=== PATIENT | female | born 1965 | race Caucasian/White ===

== ENCOUNTER 2018-09-27 10:03 | Emergency (ER) | payer MEDICAID ==
[~2018-09-27] VITALS: Ht 154.9 cm; Wt 87.1 kg
[~2018-09-27 10:03] MED LIST: FLUO20TA25 PO; OMEP-110 PO
[2018-09-27 10:09] VITALS: BP 153/101
--- NOTE | 2018-09-27 10:37 | NUR ---
PT C/O LEFT EYE PAIN.
--- NOTE | 2018-09-27 10:37 | NUR ---
LATE ENTRY FOR 1020 PT TO ROOM AT THIS TIME
--- NOTE | 2018-09-27 11:12 | NUR ---
CARE FOR DC ONLY PROVIDED. PT SITTING ON CHAIR, LEFT EYE RED. NO ACUTE DISTRESS NOTED. NO IV TO DC. REVIEWED DC INSTRUCTIONS WITH PT, UNDERSTANDING VERBALIZED. PT LEFT AMB, GAIT STEADY.
== END 2018-09-27 11:14 | disposition home or self-care (01) ==
LOC: ED 11:11
DX: H10.022 Other mucopurulent conjunctivitis, left eye (principal); Z90.710 Acquired absence of both cervix and uterus; J45.909 Unspecified asthma, uncomplicated
CPT/HCPCS: 99283

== ENCOUNTER 2018-11-01 14:46 | Emergency (ER) | payer MEDICAID ==
[~2018-11-01] VITALS: Ht 152.4 cm; Wt 85.9 kg
--- NOTE | 2018-11-01 15:00 | NUR ---
Patient Bilingual french/palauan. [place]an is excellent-no need for VRI per patient. [employer] T[employer] agreeable
[2018-11-01] MEDS ORDERED: ONDANSETRON 2MG/ML, 2ML ONE (15:24)
[2018-11-01] MEDS ORDERED: SODIUM CHLORIDE FLUSH 10ML SYR IVF ONE (15:30)
[2018-11-01] MEDS ORDERED: ONDANSETRON 2MG/ML, 2ML IVPush ONE (15:30)
[2018-11-01] MEDS ORDERED: ALBUTEROL/IPRATROPIUM 2.5MG/0.5MG, 3 ML NPPB SCH (15:30)
--- NOTE | 2018-11-01 15:30 | NUR ---
RT AT BEDSIDE PERFORMING NEB. SHELTER THROUGH ADMINISTRATION PATIENT BECAME NAUSEATED/DIZZY/TACHYCARDIC (130) AND VOMITED X1. RT STOPPED NEB. PROVIDER MADE AWARE. TO MEDICATE W/ ZOFRAN AND BROADEN WORKUP
--- NOTE | 2018-11-01 15:51 | NUR ---
ULTRASOUND PIV PLACED-MEDICATED PER EMAR WITH ZOFRAN THEN PO PREDNISON 10 MINUTES LATER WHEN NAUSEA IMPROVED
[2018-11-01 16:10] LABS: ALBUMIN 3.9 g/dL (3.4-5.0); ANION GAP 8 mmol/L (5-15); CALCIUM 9.5 mg/dL (8.5-10.1); CHLORIDE 113 mmol/L (98-107); CREATININE 0.79 mg/dL (0.55-1.02)
[2018-11-01 16:13] LABS: BASOPHILS # (AUTO) 0.05 x10^3/uL (0-0.1); BASOPHILS % (AUTO) 1 % (0-1); EOSINOPHILS # (AUTO) 0.17 x10^3/uL (0-0.4); EOSINOPHILS % (AUTO) 2 % (1-7); LYMPHOCYTES # (AUTO) 3.97 x10^3/uL (1-3.4); LYMPHOCYTES % (AUTO) 48 % (22-44); MD NO; MEAN CORPUSCULAR HEMOGLOBIN 31.1 pg (27.0-34.8); MEAN CORPUSCULAR VOLUME 94.2 fL (80-100); MEAN PLATELET VOLUME 9.5 fL (7.4-10.4); MONOCYTES # (AUTO) 0.54 x10^3/uL (0.2-0.8); MONOCYTES % (AUTO) 7 % (2-9); NEUTROPHILS # (AUTO) 3.48 x10^3/uL (1.8-6.8); NEUTROPHILS % (AUTO) 42 % (42-75); PLATELET COUNT 208 x10^3/uL (130-400); RED BLOOD COUNT 4.28 x10^6/uL (3.82-5.3); RED CELL DISTRIBUTION WIDTH 13.2 % (9.6-15.2); TROPONIN I < 0.015 ng/mL (0.000-0.045)
--- NOTE | 2018-11-01 16:20 | NUR ---
PATIENT REPORTS NAUSEA IMPROVED - HAS HELD DOWN PREDNISONE VITAL REMAIN NORMAL ON STEREO EQUIPMENT INSTALLER (HR 60-70) PLACED ON 2L NC FOR COMFORT STILL FEELS SOB (WHEEZING STILL NOTED (RT CALLED FOR RE-EVAL)
--- NOTE | 2018-11-01 16:34 | NUR ---
RT AT BEDSIDE TO RE-EVALUATE. PER RT EXAM PATIENT MUCH IMPROVED. MANAGER CCU AGREEABLE
[2018-11-01] MEDS ORDERED: LORazepam 2 MG/ML, 1ML IVPush ONE (17:00)
[2018-11-01] MEDS ORDERED: LORazepam 2 MG/ML, 1ML ONE (17:26)
--- NOTE | 2018-11-01 17:38 | NUR ---
MEDICATED PER EMAR W/ ATIVAN FOR CONTINUED SOB/FREQUENT WHEEZY COUGH CLARIFIED PLAN W/ PROVIDER- ATIVAN TO ASSIST W/ RELAXATION-DISPO IF PATIENT REPORTS RELIEF DAUGHTER CALLED FOR POTENTIAL RIDE HOME- SHE IS AVAILABLE IF NEEDED
--- NOTE | 2018-11-01 18:09 | NUR ---
PATIENT REPORTS " I FEEL MUCH MORE RELAXED NOW. I WOULD FEEL SAFE GOING HOME. I NEED AN INHALER THOUGH." PROVIDER MADE AWARE VITALS REMAIN UNCHANGED POST MEDICATION ADMINISTRATION
[2018-11-01 18:10] VITALS: BP 101/56
== END 2018-11-01 18:27 | disposition home or self-care (01) ==
LOC: ED 16:30
DX: J45.32 Mild persistent asthma with status asthmaticus (principal); F41.1 Generalized anxiety disorder; R06.00 Dyspnea, unspecified; J45.909 Unspecified asthma, uncomplicated; F32.9 Major depressive disorder, single episode, unspecified; Z90.710 Acquired absence of both cervix and uterus; Z98.890 Other specified postprocedural states
CPT/HCPCS: 36415; 71046; 80048; 82040; 83880; 84484; 85025; 85379; 93005; 94640; 96374; 96375; 99284; J2060; J2405; J7512; J7620

== ENCOUNTER 2019-06-01 06:44 | Emergency (ER) | payer MEDICAID ==
[~2019-06-01] VITALS: Ht 147.3 cm; Wt 90.3 kg
[2019-06-01 06:48] VITALS: BP 130/74
--- NOTE | 2019-06-01 07:22 | NUR ---
LABOR ARBITRATOR HEARING OFFICE: PT TO ROOM FROM LOBBY
--- NOTE | 2019-06-01 07:27 | NUR ---
FIRST CONTACT WITH PT. PT C/O: RIGHT EAR PAIN FOR "MONTHS" WITH INCREASE IN PAIN TODAY. DENIES ANY OTHER SYMPTOMS. PT'S AOX4. RESPS EVEN AND UNLABORED.
[2019-06-01] MEDS ORDERED: HYDROcodone/APAP 10/325 MG TABLET ONE (07:36)
--- NOTE | 2019-06-01 07:39 | NUR ---
pt medicated per emar. pt tolerated well.
--- NOTE | 2019-06-01 07:59 | NUR ---
Patient given discharge instructions and they have confirmed that they understand the instructions. Patient ambulatory with steady gait.
[2019-06-01] MEDS ORDERED: HYDROcodone/APAP 10/325 MG TABLET PO ONE (08:00)
== END 2019-06-01 08:00 ==
LOC: ED 07:54
DX: H60.61 Unspecified chronic otitis externa, right ear (principal)
CPT/HCPCS: 99283

== ENCOUNTER 2019-12-08 09:45 | Emergency (ER) | payer MEDICAID ==
[~2019-12-08] VITALS: Ht 149.9 cm; Wt 93.0 kg
[2019-12-08 09:46] VITALS: BP 115/76
--- NOTE | 2019-12-08 10:02 | NUR ---
PT AMBULATORY TO ROOM FROM LOBBY WITH STEADY GAIT
--- NOTE | 2019-12-08 10:04 | NUR ---
PT HAS A 1'' LAC ON BASE OF LEFT PINKY FINGER. THE CUT HAPPENED LAST NIGHT
[2019-12-08] MEDS ORDERED: LIDOCAINE-MPF 1%, 5ML INFIL ONE (10:30)
[2019-12-08] MEDS ORDERED: L.E.T SOLUTION TP ONE ×2 (10:30→10:47)
[2019-12-08] MEDS ORDERED: LIDOCAINE-MPF 1%, 5ML ONE (10:35)
[2019-12-08] MEDS ORDERED: NEOSPORIN OINT. PKT 1 PACKET ONE (11:29)
[2019-12-08] MEDS ORDERED: DIPH,PERTUSS(ACELL),TET VAC/PF 0.5 ML IM-VACC ONE ×2 (11:56→12:00)
== END 2019-12-08 12:10 | disposition home or self-care (01) ==
LOC: ED 11:46
DX: S61.217A Laceration without foreign body of left little finger without damage to nail, initial encounter (principal); J45.909 Unspecified asthma, uncomplicated; Z90.710 Acquired absence of both cervix and uterus; W26.0XXA Contact with knife, initial encounter; Y93.89 Activity, other specified; Y92.098 Other place in other non-institutional residence as the place of occurrence of the external cause; Y99.8 Other external cause status
CPT/HCPCS: 12041; 90471; 90715; 99284

== ENCOUNTER 2020-03-12 09:31 | Emergency (ER) | payer MEDICAID ==
[~2020-03-12] VITALS: Ht 134.6 cm; Wt 90.6 kg
--- NOTE | 2020-03-12 09:47 | NUR ---
CONTACT WITH PT, 54 YR OLD FEMALE HERE WITH C/O "I GOT TOO MUCH PAIN IN MY NECK. PAIN ACROSS FORHEAD AND DOWN RIGHT SIDE TO MID BACK AND RIGHT SHOULDER AND ARM. 2 DAYS AGO IT WAS DOWN MY LEFT SIDE, YESTERDAY IT WAS MY RIGHT SIDE (LEFT GOT BETTER) TODAY WOKE UP WITH IT EVEN WORSE"
[2020-03-12] MEDS ORDERED: KETOROLAC 30 MG/1 ML IM ONE (10:00)
[2020-03-12] MEDS ORDERED: KETOROLAC 60 MG/2 ML ONE (10:05)
--- NOTE | 2020-03-12 10:10 | NUR ---
PT MEDICATED FOR 10/10 PAIN ORDRED. PT PROVIDED WITH WARM BLANKET TO SHOULDERS. NO OTHER NEEDS EXPRESSED AT THIS TIME.
--- NOTE | 2020-03-12 10:39 | NUR ---
PT SITTING UP ON GURNEY. PAIN REDUCED TO 8/10.
[2020-03-12 10:40] VITALS: BP 151/91
--- NOTE | 2020-03-12 11:33 | NUR ---
PT WITH PAIN DECREASED TO 7/10. ABLE TO MOVE NECK GENTLY. NO IV TO DC. REVIEWED DC INSTRUCTIONS WITH PT. UNDERSTANDING VERBALIZED. PT LEFT AMB,GAIT STEADY.
== END 2020-03-12 11:36 | disposition home or self-care (01) ==
LOC: ED 11:05
DX: G24.3 Spasmodic torticollis (principal); M54.2 Cervicalgia; Z90.710 Acquired absence of both cervix and uterus
CPT/HCPCS: 96372; 99283; J1885

== ENCOUNTER 2020-03-24 01:09 | Emergency (ER) | payer MEDICAID ==
[~2020-03-24] VITALS: Ht 149.9 cm; Wt 91.8 kg
[2020-03-24] MEDS ORDERED: ACETAMINOPHEN 500 MG TABLET PO ONE (02:00)
[2020-03-24 02:03] LABS: BASOPHILS % (AUTO) 0 % (0-1); EOSINOPHILS % (AUTO) 0 % (1-7); LYMPHOCYTES % (AUTO) 10 % (22-44); MEAN CORPUSCULAR HEMOGLOBIN 31.8 pg (27.0-34.8); MEAN CORPUSCULAR HGB CONC 33.5 g/dL (32.4-35.8); MEAN PLATELET VOLUME 10.2 fL (7.4-10.4); MONOCYTES % (AUTO) 5 % (2-9); NEUTROPHILS % (AUTO) 84 % (42-75); PLATELET COUNT 154 x10^3/uL (130-400); RED BLOOD COUNT 4.17 x10^6/uL (3.82-5.3); RED CELL DISTRIBUTION WIDTH 12.9 % (9.6-15.2)
[2020-03-24 02:04] LABS: MD NO
--- NOTE | 2020-03-24 02:04 | NUR ---
pt in room in gown. complaining of body aches. ambulatory and speaking with MD. on o2 sat
[2020-03-24] MEDS ORDERED: ACETAMINOPHEN 500 MG TABLET ONE (02:13)
[2020-03-24 02:14] LABS: ANION GAP 5 mmol/L (5-15); CALCIUM 8.7 mg/dL (8.5-10.1); CHLORIDE 110 mmol/L (98-107); CREATININE 0.82 mg/dL (0.55-1.02)
--- NOTE | 2020-03-24 02:17 | NUR ---
break rn --- pt resting in bed, pt a/o 4, pt on monitor with vss. pt medicated per jun.
[2020-03-24 02:18] LABS: TROPONIN I < 0.015 ng/mL (0.000-0.045)
[2020-03-24] MEDS ORDERED: DOXYCYCLINE 100MG TABLET PO ONE (03:30)
[2020-03-24] MEDS ORDERED: DOXYCYCLINE 100MG TABLET ONE (03:33)
--- NOTE | 2020-03-24 04:00 | NUR ---
ekg done before d/c. pt swabbed for covid and given instructions.
[2020-03-24 04:27] VITALS: BP 118/56
--- NOTE | 2020-03-24 04:28 | NUR ---
pt given d/c instructions and v/u, ambulatory, no distress at this time. prescriptions and instructions given to pt.
== END 2020-03-24 04:30 | disposition home or self-care (01) ==
LOC: ED 01:42
DX: R06.02 Shortness of breath (principal); Z20.828 Contact with and (suspected) exposure to other viral communicable diseases; R11.2 Nausea with vomiting, unspecified; R19.7 Diarrhea, unspecified; R00.0 Tachycardia, unspecified; R05 Cough; M79.10 Myalgia, unspecified site; J45.909 Unspecified asthma, uncomplicated; Z90.710 Acquired absence of both cervix and uterus
CPT/HCPCS: 36415; 71045; 80048; 82040; 83605; 83880; 84484; 85025; 87635; 93005; 99285

== ENCOUNTER 2020-03-28 05:58 | Emergency (ER) | payer MEDICAID ==
[~2020-03-28] VITALS: Ht 152.4 cm; Wt 90.4 kg
[2020-03-28] MEDS ORDERED: LORazepam 1MG TABLET PO ONE (06:30)
[2020-03-28] MEDS ORDERED: LORazepam 1MG TABLET ONE (06:47)
--- NOTE | 2020-03-28 07:21 | NUR ---
PT ON ANTIBIOTICS THAT WAS PRESCRIBED EARLIER THIS WEEK FOR WHAT PATIENT BELIEVES PNEUMONIA. PT HAS A NEGRON WITH DRY HEAVING STARTING TODAY AND FEELING LIKE SHE CANNOT BREATHE. PT STATES SHE FEELS ANXIOUS.
[2020-03-28 07:26] LABS: BASOPHILS % (AUTO) 1 % (0-1); EOSINOPHILS % (AUTO) 4 % (1-7); LYMPHOCYTES % (AUTO) 55 % (22-44); MEAN CORPUSCULAR HEMOGLOBIN 31.8 pg (27.0-34.8); MEAN CORPUSCULAR HGB CONC 33.8 g/dL (32.4-35.8); MEAN PLATELET VOLUME 9.6 fL (7.4-10.4); MONOCYTES % (AUTO) 6 % (2-9); NEUTROPHILS % (AUTO) 35 % (42-75); PLATELET COUNT 214 x10^3/uL (130-400); RED CELL DISTRIBUTION WIDTH 12.3 % (9.6-15.2)
[2020-03-28 07:29] LABS: ALANINE AMINOTRANSFERASE 87 U/L (12-78); ALBUMIN 3.6 g/dL (3.4-5.0); ANION GAP 8 mmol/L (5-15); CALCIUM 9.1 mg/dL (8.5-10.1); CHLORIDE 111 mmol/L (98-107); CREATININE 0.73 mg/dL (0.55-1.02)
[2020-03-28 07:31] LABS: ALKALINE PHOSPHATASE 76 U/L (45-117); BILIRUBIN,TOTAL 0.6 mg/dL (0.2-1.0); TOTAL PROTEIN 7.4 g/dL (6.4-8.2)
--- NOTE | 2020-03-28 08:28 | NUR ---
PT UOB TO BATHROOM AND THEN BACK TO ROOM. PT GOES FROM WALKING AROUND IN ROOM TO LYING DOWN. AWAITING RE-EVAL
[2020-03-28 08:32] LABS: MD SCAN
[2020-03-28 10:07] VITALS: BP 133/68
== END 2020-03-28 10:11 | disposition home or self-care (01) ==
LOC: ED 07:17
DX: F41.1 Generalized anxiety disorder (principal); R11.0 Nausea; R00.0 Tachycardia, unspecified; J45.909 Unspecified asthma, uncomplicated
CPT/HCPCS: 36415; 71045; 80053; 85025; 93005; 99285

== ENCOUNTER 2020-03-31 18:59 | Emergency (ER) | payer MEDICAID ==
[~2020-03-31] VITALS: Ht 162.6 cm; Wt 90.8 kg
--- NOTE | 2020-03-31 19:30 | NUR ---
cc of back pain 08/30 since march 23. pt states sometimes she has pain in her chest that feels like heart burn, denies pain radiating to arm or face or feeling sob. pt has been seen recently for similiar symptoms and has been tested for covid with last test being negative. pt sitting up in [facility] in no respiratory distress
[2020-03-31] MEDS ORDERED: METHOCARBAMOL 750 MG TABLET PO ONE (20:00)
[2020-03-31] MEDS ORDERED: KETOROLAC 30 MG/1 ML IM ONE (20:00)
[2020-03-31] MEDS ORDERED: METHOCARBAMOL 750 MG TABLET ONE (20:31)
[2020-03-31] MEDS ORDERED: KETOROLAC 30 MG/1 ML ONE (20:31)
[2020-03-31 21:30] VITALS: BP 154/71
== END 2020-03-31 21:32 ==
LOC: ED 19:29
DX: S29.012A Strain of muscle and tendon of back wall of thorax, initial encounter (principal); M62.830 Muscle spasm of back; J45.909 Unspecified asthma, uncomplicated; Z90.710 Acquired absence of both cervix and uterus; X58.XXXA Exposure to other specified factors, initial encounter; Y93.89 Activity, other specified; Y92.89 Other specified places as the place of occurrence of the external cause; Y99.8 Other external cause status
CPT/HCPCS: 71250; 93005; 96372; 99284; J1885

== ENCOUNTER 2020-10-04 19:04 | Emergency (ER) | payer MEDICAID ==
[~2020-10-04] VITALS: Ht 137.2 cm; Wt 90.0 kg
--- NOTE | 2020-10-04 19:13 | NUR ---
EKG at triage, requested room from CN. To room via wc by EMT.
[2020-10-04] MEDS ORDERED: SODIUM CHLORIDE 0.9% 1,000ML IVBOLUS ONE (19:30)
[2020-10-04] MEDS ORDERED: SODIUM CHLORIDE FLUSH 10ML SYR IVF ONE (19:30)
[2020-10-04 19:38] LABS: BASOPHILS % (AUTO) 1 % (0-1); EOSINOPHILS % (AUTO) 3 % (1-7); LYMPHOCYTES % (AUTO) 26 % (22-44); MEAN CORPUSCULAR HEMOGLOBIN 32.1 pg (27.0-34.8); MEAN CORPUSCULAR HGB CONC 33.4 g/dL (32.4-35.8); MEAN PLATELET VOLUME 9.8 fL (7.4-10.4); MONOCYTES % (AUTO) 7 % (2-9); NEUTROPHILS % (AUTO) 63 % (42-75); PLATELET COUNT 221 x10^3/uL (130-400); RED CELL DISTRIBUTION WIDTH 12.6 % (9.6-15.2)
[2020-10-04 19:45] LABS: ANION GAP 7 mmol/L (5-15); CALCIUM 9.5 mg/dL (8.5-10.1); CHLORIDE 111 mmol/L (98-107); CREATININE 0.97 mg/dL (0.55-1.02)
[2020-10-04] MEDS ORDERED: ALBUTEROL/IPRATROPIUM 2.5MG/0.5MG, 3 ML ONE (19:46)
[2020-10-04 19:49] LABS: TROPONIN I < 0.015 ng/mL (0.000-0.045)
[2020-10-04] MEDS ORDERED: ALBUTEROL/IPRATROPIUM 2.5MG/0.5MG, 3 ML NPPB ONE (20:00)
[2020-10-04 22:38] VITALS: BP 124/83
== END 2020-10-04 23:28 | disposition home or self-care (01) ==
LOC: ED 21:15
DX: J45.901 Unspecified asthma with (acute) exacerbation (principal); R07.89 Other chest pain; I10 Essential (primary) hypertension; E78.5 Hyperlipidemia, unspecified
CPT/HCPCS: 36415; 71045; 80048; 82040; 83880; 84443; 84484; 85025; 85379; 93005; 94640

== ENCOUNTER 2020-10-08 00:19 | Emergency (ER) | payer MEDICAID ==
[~2020-10-08] VITALS: Ht 134.6 cm; Wt 91.2 kg
--- NOTE | 2020-10-08 01:10 | NUR ---
pt presents to the ed with cough for 4 days. pt states she has asthma, which she takes medication for. pt in gown, and placed on continuous monitoring, resting on gurney.
[2020-10-08] MEDS ORDERED: KETOROLAC 30 MG/1 ML ONE (01:48)
[2020-10-08] MEDS ORDERED: ALBUTEROL/IPRATROPIUM 2.5MG/0.5MG, 3 ML ONE (01:48)
[2020-10-08] MEDS ORDERED: ASPIRIN 81 MG TABLET CHEW ONE (01:48)
[2020-10-08 01:54] LABS: BASOPHILS % (AUTO) 1 % (0-1); EOSINOPHILS % (AUTO) 0 % (1-7); LYMPHOCYTES % (AUTO) 36 % (22-44); MEAN CORPUSCULAR HEMOGLOBIN 32.2 pg (27.0-34.8); MEAN CORPUSCULAR HGB CONC 33.6 g/dL (32.4-35.8); MEAN PLATELET VOLUME 9.9 fL (7.4-10.4); MONOCYTES % (AUTO) 10 % (2-9); NEUTROPHILS % (AUTO) 53 % (42-75); PLATELET COUNT 206 x10^3/uL (130-400); RED BLOOD COUNT 3.78 x10^6/uL (3.82-5.3); RED CELL DISTRIBUTION WIDTH 12.7 % (9.6-15.2)
[2020-10-08 02:00] VITALS: BP 144/72
[2020-10-08] MEDS ORDERED: ASPIRIN 81 MG TABLET CHEW PO ONE (02:00)
[2020-10-08] MEDS ORDERED: KETOROLAC 30 MG/1 ML IVPush ONE (02:00)
[2020-10-08] MEDS ORDERED: ALBUTEROL/IPRATROPIUM 2.5MG/0.5MG, 3 ML NPPB ONE (02:00)
--- NOTE | 2020-10-08 02:00 | NUR ---
20 g iv started on right hand. pain meds given and duoneb started
[2020-10-08 02:02] LABS: ALBUMIN 3.4 g/dL (3.4-5.0); ANION GAP 8 mmol/L (5-15); CALCIUM 8.4 mg/dL (8.5-10.1); CHLORIDE 113 mmol/L (98-107); CREATININE 0.69 mg/dL (0.55-1.02)
[2020-10-08 02:06] LABS: TROPONIN I 0.038 ng/mL (0.000-0.045)
--- NOTE | 2020-10-08 02:30 | NUR ---
pt resting comfortably on gurney, denies needs at this time.
== END 2020-10-08 02:50 | disposition home or self-care (01) ==
LOC: ED 01:30
DX: J45.31 Mild persistent asthma with (acute) exacerbation (principal); R07.2 Precordial pain; G47.00 Insomnia, unspecified; R94.31 Abnormal electrocardiogram [ECG] [EKG]; E78.5 Hyperlipidemia, unspecified; I10 Essential (primary) hypertension
CPT/HCPCS: 36415; 71045; 80048; 82040; 84484; 85025; 93005; 94640; 96374; 99285; J1885

== ENCOUNTER 2021-01-05 09:39 | Emergency (ER) | payer MEDICAID ==
[~2021-01-05] VITALS: Ht 149.9 cm; Wt 87.0 kg
[2021-01-05 09:42] VITALS: BP 172/107
--- NOTE | 2021-01-05 09:58 | NUR ---
THIS IS A RIGHT WRIST PAIN, ICE GIVEN
[2021-01-05] MEDS ORDERED: DIPH,PERTUSS(ACELL),TET VAC/PF 0.5 ML IM-VACC ONE ×2 (10:10→10:30)
[2021-01-05] MEDS ORDERED: NEOSPORIN OINT. PKT 1 PACKET ONE (12:24)
--- NOTE | 2021-01-05 12:48 | NUR ---
Patient/Caregiver given discharge instructions and they have confirmed that they understand the instructions. Patient ambulatory with steady gait.
== END 2021-01-05 12:49 | disposition home or self-care (01) ==
LOC: ED 10:15
DX: S63.521A Sprain of radiocarpal joint of right wrist, initial encounter (principal); R00.0 Tachycardia, unspecified; E78.5 Hyperlipidemia, unspecified; J45.909 Unspecified asthma, uncomplicated; I10 Essential (primary) hypertension; W22.8XXA Striking against or struck by other objects, initial encounter; Y93.89 Activity, other specified; Y92.410 Unspecified street and highway as the place of occurrence of the external cause; Y99.8 Other external cause status
CPT/HCPCS: 29125; 90471; 90715; 99284